=== PATIENT | male | born 1980 | race Caucasian/White ===

== ENCOUNTER 2016-03-05 11:29 | Emergency (ER) | payer OTHER ==
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
[2016-03-05] MEDS ORDERED: MOTRIN PO ONE (16:11)
[2016-03-05] MEDS ORDERED: FLEXERIL PO ONE (16:11)
[2016-03-05 18:01] VITALS: BP 119/77
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
== END 2016-03-05 18:01 | disposition home or self-care (01) ==
LOC: ED 11:29
DX: M25.511 Pain in right shoulder (principal); V49.9XXA Car occupant (driver) (passenger) injured in unspecified traffic accident, initial encounter; Y93.89 Activity, other specified; Y99.9 Unspecified external cause status; Y92.410 Unspecified street and highway as the place of occurrence of the external cause
CPT/HCPCS: 99284